=== PATIENT | female | born 1985 | race Caucasian/White ===

== ENCOUNTER 2019-06-19 18:20 | Outpatient (CLI) | payer OTHER ==
[2019-06-19 18:49] LABS: MICROSCOPIC NOT IND
== END 2019-06-19 21:22 | disposition home or self-care (01) ==
LOC: LDOP 18:20
PROVIDERS: ATTEND Obstetrics & Gynecology
DX: O26.893 Other specified pregnancy related conditions, third trimester (principal); Z3A.28 28 weeks gestation of pregnancy; R10.2 Pelvic and perineal pain
CPT/HCPCS: 59025; 81003; 87086; 99211; G0463

== ENCOUNTER → 2019-07-23 | Outpatient (CLI) | payer OTHER ==
[~2019-07-23] VITALS: Ht 160 cm; Wt 62.3 kg
[2019-07-23 23:41] VITALS: BP 118/63
[2019-07-24 00:03] LABS: MICROSCOPIC AUTO
== END | disposition home or self-care (01) ==
LOC: LDOP 23:35
PROVIDERS: ATTEND Obstetrics & Gynecology
DX: O26.893 Other specified pregnancy related conditions, third trimester (principal); O09.513 Supervision of elderly primigravida, third trimester; R10.9 Unspecified abdominal pain; Z3A.33 33 weeks gestation of pregnancy
CPT/HCPCS: 59025; 76817; 81001; 87086; 99211; G0463